=== PATIENT | female | born 2000 | race African-American/Black ===

== ENCOUNTER 2018-03-11 19:07 | Emergency (ER) | payer SELFPAY ==
[~2018-03-11] VITALS: Ht 154.9 cm; Wt 59.1 kg
[2018-03-11 19:47] VITALS: BP 124/52
== END 2018-03-11 22:18 | disposition left against medical advice (07) ==
LOC: EMS 19:08
DX: R10.9 Unspecified abdominal pain (principal); Z53.21 Procedure and treatment not carried out due to patient leaving prior to being seen by health care provider